=== PATIENT | male | born 1990 | race Hispanic/Latino ===

== ENCOUNTER 2019-04-07 12:40 | Emergency (ER) | payer OTHER ==
[~2019-04-07] VITALS: Ht 170.2 cm; Wt 106.6 kg
[2019-04-07] MEDS ORDERED: CLINDAMYCIN HC300 MG PO (15:47)
[2019-04-07] MEDS ORDERED: TYLENOL WITH C1 EACH PO (15:47)
== END 2019-04-07 16:34 | disposition home or self-care (01) ==
LOC: ER 12:40
DX: L03.317 Cellulitis of buttock (principal); I10 Essential (primary) hypertension; J45.909 Unspecified asthma, uncomplicated
CPT/HCPCS: 99282